=== PATIENT | female | born 1950 | race Caucasian/White ===

== ENCOUNTER 2024-12-14 15:31 | Observation (INO) | payer MEDICARE, SELFPAY ==
[2024-12-14 14:53] VITALS: BMI 37.6
--- NOTE | 2024-12-14 15:35 | HP.PCM.HOS_ITS ---
HPI - General General Date of Admission: 12/14/24 Date of Service: 12/14/24 Chief Complaint: shortness of breath HPI Narrative JUDSON GARCIA, is a 74 F who presents with shortness of breath. Patient presented to [facility] with shortness of breath. Patient has been experiencing for the past few weeks but became acutely worse this past several days. Patient received some prednisone 20 mg in urgent care but that was not effective and then was increased to 50 per her description and was not feeling better so presented to the [facility] for evaluation. While she was there she had a chest x-ray that showed no acute process and as well as a neck x-ray that showed no acute process as well. She received nystatin for what appeared to be thrush as well as IV methylprednisolone and bronchodilators. [facility] called [facility] for transfer and patient was transferred here and by the time she arrived she was no longer requiring oxygen. Patient states that she has been having dyspnea on exertion just walking to the bathroom she will get her hands to cramp up and she will get midsternal chest pain and get short of breath. Patient also states that she gets short of breath when she lies flat and also having proximal-isms of cough when she lays flat. Cough is nonproductive [facility] Medical History (Updated 12/14/24 @ 15:[address] Sameer Luna DO) DDD (degenerative disc disease) Electrocution Asthma Family History (Updated 12/14/24 @ 15:[address] Sameer Luna DO) Other COPD (chronic obstructive pulmonary disease) Surgical History (Updated 12/14/24 @ 15:[address] Sameer Luna DO) H/O pneumonectomy Social History Smoking Status: Never smoker ROS ROS Narrative All review of systems were negative except as mentioned above in the history of present illness and the other review of systems. Vital Signs Vital Signs Vital Signs: 12/14/24 15:00 Respiratory Effort Non-Labored Short of Breath Oxygen Delivery Method Room Air Weight Weight: 93.44 kg Body Mass Index (BMI) 37.6 Physical Exam Narrative - Physical Exam General: Alert, Oriented x3, Cooperative HEENT: Atraumatic, PERRLA, EOMI, Normocephalic Oral: Moist Mucosa, some mild ulcerations on the uvula. No obvious thrush. Bilateral wheezes Neck: Supple, No JVD, Negative Carotid Bruits Lungs:, And expiratory. Cardiovascular: Regular rate, Normal S1, Normal S2, No murmurs Abdomen: Bowel Sounds Present, Soft, Non Tender, Non-Distended, No Hepato- splenomegaly Extremities: No clubbing, No cyanosis, No edema Skin: No rashes, No breakdown Musculoskeletal: No Tenderness to Palpation of Joints or Extremities Neurological: Neuro grossly intact Psych/Mental Status: Normal Affect, Appropriate Results Lab / Micro Data Attestation: I reviewed the patient's lab results. Lab results narrative: BMP: Creatinine 0.72, sodium 140, magnesium 2 CBC: White count 12.3, hemoglobin 15.7, platelets 376, Chest x-ray report showed no acute changes, x-ray of neck showed degenerative changes of the cervical spine with large anterior osteophytes. EKG Initial EKG: Attestation: I personally reviewed and interpreted this EKG as follows: Prior EKG tracings: available for review EKG Rhythm Intrepretation: Sinus Rhythm Assessment & Plan Assessment/Plan (1) COPD exacerbation: PLAN: patient has a reported history of COPD though she was seeing chemical process operator in [place] Though she does have an extensive secondhand exposure Continue with methylprednisolone and bronchodilators Check respiratory panel guaifenesin with codeine to help with praroxisms of cough Complicated by the patient's history of partial right pneumonectomy for lung cancer. Recheck chest x-ray PA and lateral to see if there is any underlying pneumonia that may warrant antibiotics (2) Chest pain: PLAN: Not active the patient states that when she gets short of breath over this midsternal chest pain. Unclear significance at this time. EKG was unremarkable cycle troponins Check echocardiogram (3) Thrush: PLAN: Nystatin PLAN: Plan Hypertension: Continue with HCTZ Obesity class II: Stable. Complicates care however. History of lung cancer: I suspect non-small cell as it was resected with a partial right pneumonectomy. Patient was told by her chemical process operator that when she eats that the space that is left from her partial pneumonectomy is still by her stomach. This is right-sided so that does not make any sense. Already patient does have a low hiatal hernia. Patient was recently scoped and it was reported as unremarkable. Will check records from her chemical process operator in [place]. Patient states that she is going to see Dr. Ana Maria Clark as her new chemical process operator moving forward. DVT prophylaxis with enoxaparin CODE STATUS: Addressed with the patient. Patient wishes to be full code Discussed with the patient's daughter at bedside. Charges/Coding Visit Charges Inpatient E&M: 62204 Init Hosp L3
--- NOTE | 2024-12-14 16:36 | ECHOD_ITS ---
Reason For Study Reason For Study: CHEST PAIN Procedure This was a 2D Doppler, Color Flow transthoracic echocardiogram. The study was technically difficult. Patient declined use of Definity. Exam performed portable in patient room. Left Ventricle Normal size and thickness. The LV systolic function is normal. EF is 65 %. Diastolic dysfunction noted. Right Ventricle Normal RV size. Markedly thickened right ventricle. Atria The left atrium is mildly enlarged. Normal right atrium. Mitral Valve Trivial mitral valve insufficiency. Tricuspid Valve No tricuspid valve insufficiency. Aortic Valve The aortic valve is not well visualized in the short axis view. Aortic valve mean peak gradient 12 mmHg. Pulmonic Valve The pulmonic valve is not well visualized. Great Vessels Normal sized aortic root. Pericardium/Pleural Trivial to small pericardial effusion. Epicardial fat pad. MMode/2D Measurements & Calculations LVIDd: 3.8 cm LVPWd: 0.94 cm LVOT diam: 2.0 cm LVIDs: 2.6 cm FS: 31.8 % LVOT area: 3.2 cm2 RVDd: 2.9 cm Ao root diam: 3.0 cm LAV(MOD-bp): 34.6 ml LVAd ap4: 16.2 cm2 LAV(MOD-bp) Indexed: 17.9 ml/m2 LVLd ap4: 6.4 cm LAV(MOD-sp2): 33.9 ml EDV(MOD-sp4): 33.6 ml LAV(MOD-sp4): 36.1 ml EDV(sp4-el): 35.2 ml LVAs ap4: 9.0 cm2 LVLs ap4: 5.4 cm ESV(MOD-sp4): 12.5 ml ESV(sp4-el): 12.7 ml EF(MOD-sp4): 62.7 % EF(sp4-el): 64.0 % SV(MOD-sp4): 21.1 ml SV(sp4-el): 22.5 ml LA A4 area: 15.3 cm2 SI(MOD-sp4): 10.9 ml/m2 LA dimension(2D): 3.1 cm RA A4 area: 9.6 cm2 TAPSE: 1.9 cm Time Measurements MV dec time: 0.44 sec Doppler Measurements & Calculations MV E max rosalino: 138.2 cm/sec Lat Peak E' Rosalino: 4.6 cm/sec Med Peak E' Rosalino: 5.1 cm/sec MV A max rosalino: 161.7 cm/sec E/E' lat: 30.3 E/E' med: 27.1 MV E/A: 0.85 MV P1/2t max rosalino: 128.1 cm/sec Ao V2 max: 236.1 cm/sec LV V1 max: 134.2 cm/sec MV P1/2t: 88.7 msec Ao max P.3 mmHg LV V1 max P.2 mmHg Ao V2 mean: 166.1 cm/sec LV V1 mean P.4 mmHg MV dec slope: 423.0 cm/sec2 Ao mean P.1 mmHg LV V1 mean: 86.4 cm/sec MVA(P1/2t): 2.5 cm2 Ao V2 VTI: 46.1 cm LV V1 VTI: 27.0 cm AV (velocity ratio): 0.58 EVERETTE(I,D): 1.9 cm2 EVERETTE(V,D): 1.8 cm2 SV(LVOT): 86.9 ml PA V2 max: 87.2 cm/sec ECHO/Echo Complete Interpretation Summary The study was technically difficult. The LV systolic function is normal. EF is 65 %. Diastolic dysfunction noted. Markedly thickened right ventricle. The left atrium is mildly enlarged. Aortic valve mean peak gradient 12 mmHg. Trivial to small pericardial effusion. Epicardial fat pad. Ordering Physician: Sameer Luna Referring Physician: MICHAEL ESCOBAR Performed By: Vianca Feliz RDCS
--- NOTE | 2024-12-14 17:00 | RAD_ITS ---
PROCEDURE: CHEST PA AND LATERAL 12/14/2024 REASON FOR EXAM: [id number] TECHNIQUE: Frontal and lateral views of the chest. COMPARISON: None FINDINGS: Hardware: None Heart: Mild cardiomegaly. Mediastinum: The mediastinal contour is unremarkable. Lungs: Upper lobe emphysema. Bibasilar atelectasis. No focal consolidation. No pleural effusion. Bones: Degenerative changes are identified within the thoracic spine. RAD/Chest PA and Lateral IMPRESSION: No acute findings. Emphysema. [facility]
[2024-12-14 17:28] LABS: Troponin T High Sensitivity 7 ng/L (<=14)
[2024-12-14 19:05] VITALS: PULSE 68
[2024-12-14 19:14] LABS: Troponin T High Sens 2 HR 7 ng/L (<=14)
[2024-12-14] MEDS: NYSTATIN 500,000 UNIT/5 ML UDC 500000 UNIT PO ×2 (19:28→22:20)
[2024-12-14] MEDS: Ipratropium/Albuterol Sulfate 3 ML AMPUL.NEB INHALATION ×2 (19:47→22:58)
[2024-12-14 19:48] VITALS: PULSE 80; RESP 18; O2SAT 93
[2024-12-14 20:41] VITALS: BP 152/79; PULSE 76; RESP 16; TEMP 36.6; O2SAT 94
[2024-12-14 21:17] LABS: Bacteria 0 SEEN /hpf (None Seen); Squamous Epithelial Cells - UA 0 SEEN /hpf (5-10)
[2024-12-14 21:35] LABS: Troponin T High Sens 4 HR 7 ng/L (<=14)
[2024-12-14 21:42] LABS: Color, Urine Yellow (Yellow); Glucose, Dipstick 100 mg/dl (Normal); Ketone-Dipstick Negative (Negative); Leukocyte Esterase-Dipstick Negative /ul (Negative); Nitrite-Dipstick Negative (Negative); Occult Blood-Urine Negative /ul (Negative); Protein-Dipstick 30 mg/dl (Negative); Urine Bilirubin Dipstick Negative (Negative); Urine Clarity Clear (Clear); Urine Urobilinogen Normal (Normal)
[2024-12-14 21:55] LABS: Red Blood Cells-Urine 0-5 SEEN /hpf (0-5); Triple Phosphate Crystals Ur K0 /hpf (<or=1+); White Blood Cells 0-5 SEEN /hpf (0-5)
[2024-12-14 21:56] LABS: Mucous, Urine 2+ /hpf (<or=2+)
[2024-12-14] MEDS: 0.9% Saline Lock 10 ML Syringe IV (22:22)
[2024-12-14] MEDS: Acetaminophen 325 MG Tablet 650 MG PO (22:30)
[2024-12-14 22:58] VITALS: PULSE 74; RESP 20
[2024-12-14 23:28] VITALS: PULSE 84; O2SAT 93
[2024-12-14 23:45] VITALS: PULSE 78
[2024-12-15] VITALS (12 sets, daily range): BP systolic 139–166; BP diastolic 62–81; PULSE 70–94; RESP 17–20; TEMP 36.4–36.6; O2SAT 93–97
[2024-12-15] MEDS: Ipratropium/Albuterol Sulfate 3 ML AMPUL.NEB INHALATION ×6 (03:46→23:28)
[2024-12-15] MEDS: hydrALAZINE 20 MG/ML Vial 10 MG IV (03:55)
[2024-12-15] MEDS: 0.9% Saline Lock 10 ML Syringe IV ×3 (03:56→21:36)
[2024-12-15] MEDS: Ibuprofen 600 MG Tablet PO (04:28)
--- NOTE | 2024-12-15 04:29 | CPS ---
Pt had Cpap at home but it was collected from company for not meeting user requirements. RT attempted to put pt on a face mask cpap of 6. Pt was unable to tolerate cpap ... so it was turned off and pt is on RA.
[2024-12-15] MEDS: Acetaminophen 325 MG Tablet 650 MG PO ×2 (06:01→21:37)
[2024-12-15 06:45] LABS: Absolute Neutrophil Count 9.3 X10^3/uL (2.0-7.7); Basophil# 0.03 X10^3/uL; Basophil% 0.2 % (0-1); Hematocrit 46.1 % (37-47); Hemoglobin 15.5 g/dL (12.0-15.0); Lymphocyte % 19.1 % (19-41); Mean Corp Hgb Conc 33.6 g/dL (32-36); Mean Corpuscular Volume 86.3 fL (81-99); Mean Platelet Vol. 10.3 fl (6.2-12.0); Monocyte# 0.32 X10^3/uL; Monocyte% 2.7 % (0-10); NRBC Flagged by Analyzer 0 % (0-5); Neutrophil # 9.29 X10^3/uL (2.7-7.7); Neutrophil % 77.2 % (47-70); Platelet Count 379 K/mm3 (150-450); RBC Distribution Width CV 13.2 % (11.6-14.6); RBC Distribution Width SD 40.8 fl (35.1-43.9); Red Blood Count 5.34 M/mm3 (4.2-5.4)
[2024-12-15 07:16] LABS: Anion Gap 15 (5-15); BUN 31 mg/dL (4-19); BUN/Creat Ratio 38.9 RATIO (10-20); Calcium,Total 9.7 mg/dL (7.6-11.0); Carbon Dioxide 24.1 mmol/L (21.0-32.0); Chloride 98 mmol/L (98-108); Creatinine, Serum 0.79 mg/dL (0.70-1.20); EST Glomerular Filtration Rate 78 (>60); Estimated Creatinine Clearance 64.68 ml/min (50-250); Glucose 183 mg/dL (70-99); Potassium 3.8 mmol/L (3.3-5.1); Sodium Level 137 mmol/L (133-145)
--- NOTE | 2024-12-15 08:59 | PN.HOSP_ITS ---
Reason for Visit Reason for Visit: Diagnoses Candidal stomatitis (12/14/24) Chronic obstructive pulmonary disease with (acute) exacerbation (12/14/24) Chest pain, unspecified (12/14/24) Objective Data Objective Data Vital Signs: Vital Signs Temp Pulse Resp BP Pulse Ox O2 Del Method FiO2 98 F 87 20 H 142/79 H 93 Room Air 21 12/15/24 02:45 12/15/24 07:12 12/15/24 07:12 12/15/24 05:58 12/15/24 07:12 12/15/24 07:12 12/14/24 23:28 Oxygen Delivery Method Room Air Weight: 206 lb Body Mass Index (BMI) 37.6 Intake & Output: Intake and Output for Last 24 Hours 12/13/24 12/14/24 12/15/24 23:59 23:59 23:59 Intake Total 610 / 610 450 / 450 Balance 610 / 610 450 / 450 Lab / Micro Data 12/15/24 06:34 12/15/24 06:34 Labs: Laboratory Results - last 24 hr 12/14/24 16:58: Troponin T High Sens 7 12/14/24 18:40: Troponin T Hi Sens 2 Hr 7 12/14/24 20:02: Urine Color Yellow, Urine Clarity Clear, Urine pH 6.0, Ur Specific [place] 1.020, Urine Protein 30 H, Urine Glucose (UA) 100 H, Urine Ketones Negative, Urine Occult Blood Negative, Urine Nitrite Negative, Urine Bilirubin Negative, Urine Urobilinogen Normal, Ur Leukocyte Esterase Negative, Urine RBC 0-5 SEEN, Urine WBC 0-5 SEEN, Ur Squamous Epith Cells 0 SEEN, Triple Phos Crystals K0, Urine Bacteria 0 SEEN, Urine Mucus 2+ 12/14/24 20:42: Troponin T Hi Sens 4Hr 7 12/15/24 06:34: WBC 12.0 H, RBC 5.34, Hgb 15.5 H, Hct 46.1, MCV 86.3, MCH 29.0, MCHC 33.6, RDW Std Deviation 40.8, RDW Coeff of Gela 13.2, Plt Count 379, MPV 10.3, Immature Gran % (Auto) 0.800, Neut % (Auto) 77.2 H, Lymph % (Auto) 19.1, [place] % (Auto) 2.7, Eos % (Auto) 0.0, Baso % (Auto) 0.2, Absolute Neuts (auto) 9.3 H, Absolute Lymphs (auto) 2.30, Nucleated RBC % 0, Sodium 137, Potassium 3.8, Chloride 98, Carbon Dioxide 24.1, Anion Gap 15, BUN 31 H, Creatinine 0.79, Estim Creat Clear Calc 64.68, Est GFR (MDRD) Non-Af 78, BUN/Creatinine Ratio 38.9 H, Glucose 183 H, Calcium 9.7 Micro: Microbiology 12/14/24 17:32 Mucosa - Nose Respiratory Panel (PCR) - Final Human [place] 12/15/24 03:49 Mucosa - Nasopharyngeal SARS-CoV-2, Influenza & RSV (PCR) - Final Radiography Diagnostic Testing: Radiology Impression Chest X-Ray 12/14/24 17:00 IMPRESSION: No acute findings. Emphysema. Reading Location: [facility] Physical Exam Narrative Seen and examined. Patient is stated that she has partial resection of right lung and has chronic GERD/acid reflux and hiatus hernia issues. Still wheezing and short of breath. physical exam: General: Alert, Oriented x3, Cooperative. BMI 37.7 kg/m?. Obesity grade 2 HEENT: Atraumatic, PERRLA, EOMI, Normocephalic. Oral: Oral mucosa moist. Mild ulcerations on the uvula. No obvious thrush. Neck: Supple, No JVD, Negative Carotid Bruits Chest wall/Lungs: Air entry diminished in bilateral lung bases. Bilateral wheezing and expiratory rhonchi. Cardiovascular: Regular rate and rhythm, Normal S1,S2, No M/G/R Abdomen: Bowel Sounds Present, Soft, Non Tender, Non-Distended : No dysuria. No renal angle tenderness. No suprapubic tenderness. Extremities: No edema, Capillary Refill Less than 3 Seconds Skin: No rashes, No breakdown Musculoskeletal: No Tenderness to Palpation of Joints or Extremities Neurological: Cranial nerves II-XII grossly intact, DTR 2+/4. No acute focal neurological deficit. Psych/Mental Status: Normal Affect, Appropriate. Assessment & Plan Assessment/Plan (1) COPD exacerbation: PLAN: patient has a reported history of COPD though she was seeing director of clinical applications in [place] Though she does have an extensive secondhand exposure Continue with methylprednisolone and bronchodilators Respiratory panel positive for human metapneumovirus. Triple PCR for SARS-CoV-2, flu and RSV are negative. Robitussin AC for cough. Oxygen. Complicated by the patient's history of partial right pneumonectomy for lung cancer. Chest x-ray reviewed. It is underexposed in the bilateral lower lung benavidez. Upper lobe emphysema. No focal consolidation. No pleural effusion. Pneumonia ruled out. (2) Chest pain: PLAN: Not active the patient states that when she gets short of breath over this midsternal chest pain. Unclear significance at this time. EKG was unremarkable Serial troponins are negative. 2D echo shows EF 65%, diastolic dysfunction, moderately thickened RV, LA mildly enlarged. AV mean peak gradient 12 mmHg. Overall suggestive of chronic HFpEF Microbiology Past 72 Hours 12/14/24 17:32 Mucosa - Nose Respiratory Panel (PCR) - Final Human [place] 12/15/24 03:49 Mucosa - Nasopharyngeal SARS-CoV-2, Influenza & RSV (PCR) - Final Laboratory Results 12/14/24 16:58: Troponin T High Sens 7 12/14/24 18:40: Troponin T Hi Sens 2 Hr 7 12/14/24 20:02: Urine Color Yellow, Urine Clarity Clear, Urine pH 6.0, Ur Specific [place] 1.020, Urine Protein 30 H, Urine Glucose (UA) 100 H, Urine Ketones Negative, Urine Occult Blood Negative, Urine Nitrite Negative, Urine Bilirubin Negative, Urine Urobilinogen Normal, Ur Leukocyte Esterase Negative, Urine RBC 0-5 SEEN, Urine WBC 0-5 SEEN, Ur Squamous Epith Cells 0 SEEN, Triple Phos Crystals K0, Urine Bacteria 0 SEEN, Urine Mucus 2+ 12/14/24 20:42: Troponin T Hi Sens 4Hr 7 12/15/24 06:34: WBC 12.0 H, RBC 5.34, Hgb 15.5 H, Hct 46.1, MCV 86.3, MCH 29.0, MCHC 33.6, RDW Std Deviation 40.8, RDW Coeff of Gela 13.2, Plt Count 379, MPV 10.3, Immature Gran % (Auto) 0.800, Neut % (Auto) 77.2 H, Lymph % (Auto) 19.1, [place] % (Auto) 2.7, Eos % (Auto) 0.0, Baso % (Auto) 0.2, Absolute Neuts (auto) 9.3 H, Absolute Lymphs (auto) 2.30, Nucleated RBC % 0, Sodium 137, Potassium 3.8, Chloride 98, Carbon Dioxide 24.1, Anion Gap 15, BUN 31 H, Creatinine 0.79, Estim Creat Clear Calc 64.68, Est GFR (MDRD) Non-Af 78, BUN/Creatinine Ratio 38.9 H, Glucose 183 H, Calcium 9.7 (3) Thrush: PLAN: Nystatin PLAN: Plan Hypertension: Continue with HCTZ Obesity class II: Stable. History of lung cancer: I suspect non-small cell as it was resected with a partial right pneumonectomy. Patient was told by her director of clinical applications that when she eats that the space that is left from her partial pneumonectomy is still by her stomach. Chest x-ray shows gastric fundus on the left side therefore does not seem significant hiatus hernia but patient might have low hiatus hernia. Patient was recently scoped and it was reported as unremarkable. Will check records from her director of clinical applications in [place]. Patient states that she is going to see Dr. Ana Maria lCark as her new director of clinical applications moving forward. Advised to follow-up local plate cleaner for chronic GERD symptoms DVT prophylaxis with enoxaparin CODE STATUS: Addressed with the patient. Patient wishes to be full code Charges/Coding Visit Charges Inpatient E&M: 44988 Subs Hosp L2
[2024-12-15] MEDS: NYSTATIN 500,000 UNIT/5 ML UDC 500000 UNIT PO ×4 (10:24→21:37)
[2024-12-15] MEDS: hydroCHLOROthiazide 25 MG Tablet PO ×2 (10:24)
[2024-12-15] MEDS: Enoxaparin 40 MG/0.4 ML Syringe SC (11:05)
[2024-12-15] MEDS: amLODIPine 10 MG Tablet PO (11:05)
[2024-12-15] MEDS: Losartan Potassium 100 MG Tablet PO (13:45)
[2024-12-15] MEDS: Carvedilol 25 MG Tablet PO ×2 (13:45→19:14)
[2024-12-15] MEDS: Doxycycline 100 MG CAPSULE PO ×2 (13:45→21:38)
[2024-12-15] MEDS: Methocarbamol 500 MG Tablet PO ×2 (13:46→21:38)
--- NOTE | 2024-12-15 15:30 | CASEMGMT ---
RN CM Face to Face with patient for initial transition planning/care coordination assessment. RN CM introduced self and role at [facility]. Patient lying in bed, alert and oriented. Patient willing to participate in assessment and is able to answer all questions appropriately. Care providers, pharmacy, and demographics verified. Strata: 1 PCP: Ramandeep Specialists: Cristian, oncologist; Lillian Clark, grinder operator external tool; [facility]erred [facility]acy: [facility] Insurance: [email or web address] Prescription Benefit: yes Living Will/HPOA: none LNOK: brother, Living Arrangements: Patient lives alone in a first floor apartment with no steps to enter. Patient is independent at home. Transportation: self, brother DME/HHC: Patient has shower chair, grab bars, nebulizer, and pulse ox at home. No previous HHC or SNF. Will monitor for home oxygen at discharge, prefers [employer] for DME Patient wishes to discharge home, denies need for home health at this time. Patient states she has no further needs or concerns at this time. CM to follow for discharge planning needs that may arise. Disposition Plan: Patient to discharge home with family support and follow-up plans in place. Josee NUNEZ, RN, CM
[2024-12-15] MEDS: APIXABAN 5 MG TABLET PO (21:37)
[2024-12-15] MEDS: Amiodarone 200 MG Tablet 400 MG PO (21:38)
[2024-12-15] MEDS: Atorvastatin Calcium 40 MG Tablet PO (21:38)
[2024-12-16] VITALS (7 sets, daily range): BP systolic 142–152; BP diastolic 84–85; PULSE 63–80; RESP 15–20; TEMP 36.1–36.6; O2SAT 93–95
[2024-12-16] MEDS: Acetaminophen 325 MG Tablet 650 MG PO (04:47)
[2024-12-16] MEDS: Methocarbamol 500 MG Tablet PO (04:49)
[2024-12-16] MEDS: 0.9% Saline Lock 10 ML Syringe IV (04:49)
[2024-12-16] MEDS: Ipratropium/Albuterol Sulfate 3 ML AMPUL.NEB INHALATION ×2 (07:20→11:17)
[2024-12-16] MEDS: Carvedilol 25 MG Tablet PO (08:58)
[2024-12-16] MEDS: Losartan Potassium 100 MG Tablet PO (08:58)
[2024-12-16] MEDS: Amiodarone 200 MG Tablet 400 MG PO (08:58)
[2024-12-16] MEDS: Magnesium Chloride 64 MG Delay Rel.Tablet 128 MG PO (08:58)
[2024-12-16] MEDS: Pantoprazole Sodium 40 MG Tablet PO (08:58)
[2024-12-16] MEDS: APIXABAN 5 MG TABLET PO (08:59)
[2024-12-16] MEDS: amLODIPine 10 MG Tablet PO (08:59)
[2024-12-16] MEDS: Potassium Chloride Oral Tablet 20 MEQ PO (08:59)
[2024-12-16] MEDS: Doxycycline 100 MG CAPSULE PO (08:59)
[2024-12-16] MEDS: NYSTATIN 500,000 UNIT/5 ML UDC 500000 UNIT PO (09:00)
--- NOTE | 2024-12-16 11:11 | PCM.DC ---
Discharge Instructions Diet Discharge Diet: Low fat / Low cholesterol DC O2, CPAP, BIPAP needs Home O2 Discharge instructions: No Dressing / Incision Discharge Activity: Return to Normal Activity Weight Bearing Status: Weight bearing as tolerated Dressing / Incision Call your doctor if you observe: Fever of 101 or Higher, Coldness, Increased Pain, Numbness or Tingling, Change in Color, Inability to urinate, Inability to have a bowel movement, Shortness of breath, Dizziness, Fainting spells, Swelling in the ankles, Chest pain, Prolonged hiccupping, Increased palpitations (irregular heartbeat) and Calf discomfort Follow Up Care When: IN 2 WEEKS Test Results: Test results from this visit will be discussed in further detail at your follow-up appointment, if applicable. Discharge Plan Admission Admit Date/Time: 12/14/24 15:31 Attending Provider: Tristian Asif Primary Care Provider: Mark Sabillon Consulting Providers: Tristian Asif; Sameer Luna Instructions Additional Instructions / Restrictions: Follow-up of [facility] dining room host Dr. Ana Maria Clark in 1 week Discharge Orders/Prescriptions Prescriptions: New dextromethorphan-guaifenesin [Mucus DM Max ER] 60-1,200 mg tablet extended release 12 hr 1 tab PO Q12H 7 Days Qty: 14 0RF prednisone 20 mg tablet 40 mg PO DAILY 5 Days Qty: 10 0RF Continued atorvastatin 40 mg tablet 40 mg PO DAILY carvedilol 25 mg tablet 25 mg PO BID amiodarone [Pacerone] 400 mg tablet 400 mg PO BID amlodipine 10 mg tablet 10 mg PO DAILY doxycycline monohydrate 100 mg capsule 100 mg PO BID fluticasone propion-salmeterol 500-50 mcg/dose blister with device 1 ea INHALATION BID hydrochlorothiazide 25 mg tablet 25 mg PO DAILY budesonide-formoterol 160-4.5 mcg/actuation HFA aerosol inhaler inhalation Eliquis 5 mg tablet 5 mg PO BID methocarbamol 500 mg tablet 500 mg PO TID omeprazole 40 mg capsule,delayed release(DR/EC) 40 mg PO DAILY potassium chloride 20 mEq tablet,ER particles/crystals 20 meq PO DAILY magnesium oxide 400 mg (241.3 mg magnesium) tablet 400 mg PO DAILY losartan 100 mg tablet 100 mg PO DAILY Discontinued nadolol 20 mg tablet 20 mg PO BID prednisone 50 mg tablet 50 mg PO DAILY Referrals / Follow Up: Mark Sabillon MD [Primary Care Provider] - Disposition Disposition (needs filled in before D/C Order can be placed): Home, Self Care
--- NOTE | 2024-12-16 12:23 | PCM.DC.SUM ---
Providers Date of Admission: 12/14/24 Date of Discharge: 12/16/24 Primary Care Physician: Dr. Mark Sabillon MD Reason For Visit: SOB AND WHEEZING Diagnosis Discharge Diagnosis (1) COPD exacerbation: Status: Chronic Code(s): J44.1 - Chronic obstructive pulmonary disease with (acute) exacerbation Plan: patient has a reported history of COPD though she was seeing refrigeration operator in [place] Though she does have an extensive secondhand exposure Continue with methylprednisolone and bronchodilators Respiratory panel positive for human metapneumovirus. Triple PCR for SARS-CoV-2, flu and RSV are negative. Robitussin AC for cough. Oxygen. Complicated by the patient's history of partial right pneumonectomy for lung cancer. Chest x-ray reviewed. It is underexposed in the bilateral lower lung benavidez. Upper lobe emphysema. No focal consolidation. No pleural effusion. Pneumonia ruled out. 12/16: Patient's shortness of breath is much improved but is still wheezing. Seems she is a chronic wheezing. Discharged on 5 more days of burst prednisone. She has maintenance inhaler at home. Does not need oxygen. Advised follow-up refrigeration operator Dr. Ana Maria Clark in 1 week (2) Chest pain: Status: Acute Code(s): R07.9 - Chest pain, unspecified Plan: Not active the patient states that when she gets short of breath over this midsternal chest pain. Unclear significance at this time. EKG was unremarkable Serial troponins are negative. 2D echo shows EF 65%, diastolic dysfunction, moderately thickened RV, LA mildly enlarged. AV mean peak gradient 12 mmHg. Overall suggestive of chronic HFpEF Patient is on carvedilol, amlodipine and losartan good medications for HFpEF Microbiology Past 72 Hours 12/14/24 17:32 Mucosa - Nose Respiratory Panel (PCR) - Final Human [place] 12/15/24 03:49 Mucosa - Nasopharyngeal SARS-CoV-2, Influenza & RSV (PCR) - Final Laboratory Results 12/14/24 16:58: Troponin T High Sens 7 12/14/24 18:40: Troponin T Hi Sens 2 Hr 7 12/14/24 20:02: Urine Color Yellow, Urine Clarity Clear, Urine pH 6.0, Ur Specific [place] 1.020, Urine Protein 30 H, Urine Glucose (UA) 100 H, Urine Ketones Negative, Urine Occult Blood Negative, Urine Nitrite Negative, Urine Bilirubin Negative, Urine Urobilinogen Normal, Ur Leukocyte Esterase Negative, Urine RBC 0-5 SEEN, Urine WBC 0-5 SEEN, Ur Squamous Epith Cells 0 SEEN, Triple Phos Crystals K0, Urine Bacteria 0 SEEN, Urine Mucus 2+ 12/14/24 20:42: Troponin T Hi Sens 4Hr 7 12/15/24 06:34: WBC 12.0 H, RBC 5.34, Hgb 15.5 H, Hct 46.1, MCV 86.3, MCH 29.0, MCHC 33.6, RDW Std Deviation 40.8, RDW Coeff of Gela 13.2, Plt Count 379, MPV 10.3, Immature Gran % (Auto) 0.800, Neut % (Auto) 77.2 H, Lymph % (Auto) 19.1, [place] % (Auto) 2.7, Eos % (Auto) 0.0, Baso % (Auto) 0.2, Absolute Neuts (auto) 9.3 H, Absolute Lymphs (auto) 2.30, Nucleated RBC % 0, Sodium 137, Potassium 3.8, Chloride 98, Carbon Dioxide 24.1, Anion Gap 15, BUN 31 H, Creatinine 0.79, Estim Creat Clear Calc 64.68, Est GFR (MDRD) Non-Af 78, BUN/Creatinine Ratio 38.9 H, Glucose 183 H, Calcium 9.7 (3) Thrush: Status: Acute Code(s): B37.0 - Candidal stomatitis Plan: Nystatin Plan Hypertension: Continue with HCTZ Obesity class II: Stable. History of lung cancer: I suspect non-small cell as it was resected with a partial right pneumonectomy. Patient was told by her refrigeration operator that when she eats that the space that is left from her partial pneumonectomy is still by her stomach. Chest x-ray shows gastric fundus on the left side therefore does not seem significant hiatus hernia but patient might have low hiatus hernia. Patient was recently scoped and it was reported as unremarkable. Will check records from her refrigeration operator in [place]. Patient states that she is going to see Dr. Ana Maria Clark as her new refrigeration operator moving forward. Advised to follow-up local instructional supervisor for chronic GERD symptoms DVT prophylaxis with enoxaparin CODE STATUS: Addressed with the patient. Patient wishes to be full code Medications at Discharge Home Medications amiodarone 400 mg tablet (Pacerone) 400 mg PO BID 12/14/24 amlodipine 10 mg tablet 10 mg PO DAILY 12/14/24 apixaban 5 mg tablet (Eliquis) 5 mg PO BID 12/14/24 atorvastatin 40 mg tablet 40 mg PO DAILY 12/14/24 budesonide-formoterol HFA 160 mcg-4.5 mcg/actuation aerosol inhaler inhalation 12/14/24 carvedilol 25 mg tablet 25 mg PO BID 12/14/24 doxycycline monohydrate 100 mg capsule 100 mg PO BID 12/14/24 fluticasone 500 mcg-salmeterol 50 mcg/dose blistr powdr for inhalation 1 ea inhalation BID 12/14/24 hydrochlorothiazide 25 mg tablet 25 mg PO DAILY 12/14/24 losartan 100 mg tablet 100 mg PO DAILY 12/14/24 magnesium oxide 400 mg (241.3 mg magnesium) tablet 400 mg PO DAILY 12/14/24 methocarbamol 500 mg tablet 500 mg PO TID 12/14/24 omeprazole 40 mg capsule,delayed release 40 mg PO DAILY 12/14/24 potassium chloride 20 mEq tablet,extended release(part/cryst) 20 meq PO DAILY 12/14/24 dextromethorphan-guaifenesin ER 60 mg-1,200 mg tab,extend release,12hr (Mucus DM Max ER) 1 tab PO Q12H 1 week #14 tabs 12/16/24 prednisone 20 mg tablet 40 mg (2 x 20 mg) PO DAILY 5 days #10 tabs 12/16/24 Physical Exam Narrative Seen and examined. Shortness of breath is much improved. Mild cough and wheezing. No dyspnea. Patient is stated that she has partial resection of right lung and has chronic GERD/acid reflux and hiatus hernia issues. Still wheezing and short of breath. physical exam: General: Alert, Oriented x3, Cooperative. BMI 37.7 kg/m?. Obesity grade 2 HEENT: Atraumatic, PERRLA, EOMI, Normocephalic. Oral: Oral mucosa moist. Mild ulcerations on the uvula. No obvious thrush. Neck: Supple, No JVD, Negative Carotid Bruits Chest wall/Lungs: Air entry diminished in bilateral lung bases. Mild bilateral wheezing and expiratory rhonchi. Cardiovascular: Regular rate and rhythm, Normal S1,S2, No M/G/R Abdomen: Bowel Sounds Present, Soft, Non Tender, Non-Distended : No dysuria. No renal angle tenderness. No suprapubic tenderness. Extremities: No edema, Capillary Refill Less than 3 Seconds Skin: No rashes, No breakdown Musculoskeletal: No Tenderness to Palpation of Joints or Extremities Neurological: Cranial nerves II-XII grossly intact, DTR 2+/4. No acute focal neurological deficit. Psych/Mental Status: Normal Affect, Appropriate. Weight / BMI Weight Weight: 205 lb 15.999 oz Body Mass Index (BMI) 37.6 ABG / Lab / Microbiology Data 12/15/24 06:34 12/15/24 06:34 Microbiology: Microbiology 12/14/24 17:32 Mucosa - Nose Respiratory Panel (PCR) - Final Human [place] 12/15/24 03:49 Mucosa - Nasopharyngeal SARS-CoV-2, Influenza & RSV (PCR) - Final D/C Instructions Discharge Diet: Low fat / Low cholesterol Weight Bearing Status: Weight bearing as tolerated Call your doctor if you observe: Fever of 101 or Higher, Coldness, Increased Pain, Numbness or Tingling, Change in Color, Inability to urinate, Inability to have a bowel movement, Shortness of breath, Dizziness, Fainting spells, Swelling in the ankles, Chest pain, Prolonged hiccupping, Increased palpitations (irregular heartbeat) and Calf discomfort DC O2, CPAP, BIPAP Needs Home O2 Discharge instructions: No When: IN 2 WEEKS Meaningful Use Info Meaningful Use Meaningful Use Diagnoses (Choose all that apply): None applicable Ischemic Stroke Statin Dosing Therapy Reference: STATIN DOSE THERAPY REFERENCE: * Patients > 75 years receive moderate or high dose statin therapy. * Patients 75 years or YOUNGER should receive HIGH intensity statin dose unless contraindicated. You will be required to document reason for non-treatment if statin daily dose does not meet guidelines. HIGH DOSE STATIN THERAPY DAILY Atorvastatin > than or = to 40 mg Rosuvastatin > than or = to 20 mg Amlodipine + Atorvastatin > than or = to 2.5/40 mg Ezetimibe + Simvastatin 10/80 mg Simvastatin 80mg Discharge Plan Admission Admit Date/Time: 12/14/24 15:31 Attending Provider: Tristian Asif Primary Care Provider: Mark Sabillon Consulting Providers: Tristian Asif; Sameer Luna Instructions Additional Instructions / Restrictions: Follow-up of [facility] refrigeration operator Dr. Ana Maria Clark in 1 week Discharge Orders/Prescriptions Prescriptions: New dextromethorphan-guaifenesin [Mucus DM Max ER] 60-1,200 mg tablet extended release 12 hr 1 tab PO Q12H 7 Days Qty: 14 0RF prednisone 20 mg tablet 40 mg PO DAILY 5 Days Qty: 10 0RF Continued atorvastatin 40 mg tablet 40 mg PO DAILY carvedilol 25 mg tablet 25 mg PO BID amiodarone [Pacerone] 400 mg tablet 400 mg PO BID amlodipine 10 mg tablet 10 mg PO DAILY doxycycline monohydrate 100 mg capsule 100 mg PO BID fluticasone propion-salmeterol 500-50 mcg/dose blister with device 1 ea INHALATION BID hydrochlorothiazide 25 mg tablet 25 mg PO DAILY budesonide-formoterol 160-4.5 mcg/actuation HFA aerosol inhaler inhalation Eliquis 5 mg tablet 5 mg PO BID methocarbamol 500 mg tablet 500 mg PO TID omeprazole 40 mg capsule,delayed release(DR/EC) 40 mg PO DAILY potassium chloride 20 mEq tablet,ER particles/crystals 20 meq PO DAILY magnesium oxide 400 mg (241.3 mg magnesium) tablet 400 mg PO DAILY losartan 100 mg tablet 100 mg PO DAILY Discontinued nadolol 20 mg tablet 20 mg PO BID prednisone 50 mg tablet 50 mg PO DAILY Referrals / Follow Up: Mark Sabillon MD [Primary Care Provider] - Disposition Disposition (needs filled in before D/C Order can be placed): Home, Self Care Charges/Coding Visit Charges Inpatient E&M: 08054 Disch Hosp >30min
--- NOTE | 2024-12-16 12:37 | CASEMGMT ---
Patient has order for discharge. Patient does not qualify for home oxygen at discharge. RN CM in to discuss needs at discharge. Patient denies needs at discharge. Patient had no further questions or concerns.
== END 2024-12-16 13:03 | disposition home or self-care (01) ==
PROVIDERS: Internal Medicine; Admitting Provider Internal Medicine; PCP Family Medicine; Referring Provider Internal Medicine; Visit Provider Internal Medicine
DX: J44.1 Chronic obstructive pulmonary disease with (acute) exacerbation (principal); B37.0 Candidal stomatitis; I10 Essential (primary) hypertension; E66.812 Obesity, class 2; Z68.37 Body mass index [BMI] 37.0-37.9, adult; Z90.2 Acquired absence of lung [part of]; Z85.118 Personal history of other malignant neoplasm of bronchus and lung; Z79.899 Other long term (current) drug therapy; R07.2 Precordial pain; K21.9 Gastro-esophageal reflux disease without esophagitis; B34.8 Other viral infections of unspecified site
CPT/HCPCS: 36415; 71046; 80048; 81001; 84484; 85025; 87631; 87633; 93306; 94640; 94660; 96372; 96374; 96375; 96376; 97802; 99221; A4216; G0378; G0379

== ENCOUNTER → 2025-05-02 | Outpatient (CLI) | payer MEDICARE, SELFPAY ==
--- NOTE | 2025-05-02 15:59 | RAD_ITS ---
PROCEDURE: LUMBAR SPINE 2 OR 3 VIEWS 05/02/2025 REASON FOR EXAM: SPONDYLOSIS WITHOUT MYELOPATHY OR RADICULOPATHY, LUMBAR REGION TECHNIQUE: Procedure Code: RADSPLL Modality: DX Procedure: LUMBAR SPINE 2 OR 3 VIEWS FINDINGS: No evidence acute fracture or dislocation. [id number]-[id number] degenerative changes of the visualized spine. Normal alignment. Vertebral body heights are maintained. RAD/Lumbar Spine 2 or 3 Views IMPRESSION: Spondylosis. Reading Location: [id number]
--- NOTE | 2025-05-02 16:05 | RAD_ITS ---
PROCEDURE: CERV SPINE 2 OR 3 VIEWS 05/02/2025 REASON FOR EXAM: SPONDYLOSIS WITHOUT MYELOPATHY OR RADICULOPATHY, CERVICAL REGION TECHNIQUE: Procedure Code: RADSPCL Modality: DX Procedure: CERV SPINE 2 OR 3 VIEWS FINDINGS: No evidence of acute fracture or dislocation. Vertebral body heights are maintained. Moderate discogenic degenerative changes of the visualized spine including large anterior flowing osteophytes. Normal alignment. RAD/Cerv Spine 2 or 3 Views IMPRESSION: Spondylosis. Disclaimer: Reading Location: [id number]
== END | disposition home or self-care (01) ==
PROVIDERS: PCP Family Medicine; Referring Provider Anesthesiology Pain Medicine; Visit Provider Anesthesiology Pain Medicine
DX: M47.816 Spondylosis without myelopathy or radiculopathy, lumbar region (principal); M47.812 Spondylosis without myelopathy or radiculopathy, cervical region
CPT/HCPCS: 72040; 72100

== ENCOUNTER → 2025-06-21 | Outpatient (CLI) | payer MEDICARE, SELFPAY ==
--- NOTE | 2025-06-21 15:43 | MRI_ITS ---
PROCEDURE: SPINE CERVICAL (ROUTINE) 06/21/2025 REASON FOR EXAM: SPONDYLOSIS WITHOUT RADICULOPATHY TECHNIQUE: Procedure Code: MRISPC Modality: MR Procedure: SPINE CERVICAL (ROUTINE) Multiplanar and multisequence images were obtained without IV contrast administration. COMPARISON: May 02, 2025 FINDINGS: Spinal cord signal is grossly unremarkable. Bone marrow signal is unremarkable. There is straightening of the cervical lordosis. Flowing osteophytosis is noted anteriorly between C3 and C6, likely an element of diffuse idiopathic skeletal hyperostosis. Please note that motion artifact limits evaluation of axial T2 weighted images significantly. C2-3: No definite disc disease although motion artifact limits. There is left- sided facet arthropathy. C3-4: There is left-sided facet arthropathy. Neural foramina are unable to be adequately evaluated due to motion. The AP canal diameter measures 9.3 mm at this level. C4-5: No significant disease aside from mild facet arthropathy. Motion limits. C5-6: There is no significant disease noted. C6-7: There is a broad-based posterior disc bulge, most pronounced in the left subarticular zone and foraminal zone, with possible narrowing of the left neural foramen. The AP canal diameter measures 8.8 mm at this level. C7-T1: Unremarkable MRI/Spine Cervical (Routine) IMPRESSION: Extremely limited by motion artifact. There is evidence of multilevel degenera tive disc disease with some degree of central canal narrowing at C3-C4 and more pronounced at C6-C7. Please see above for de tails by level. Reading Location: [id number]
== END | disposition home or self-care (01) ==
PROVIDERS: PCP Family Medicine; Referring Provider Anesthesiology Pain Medicine; Visit Provider Anesthesiology Pain Medicine
DX: M67.879 Other specified disorders of synovium and tendon, unspecified ankle and foot (principal)
CPT/HCPCS: 72141